=== PATIENT | female | born 1950 | race Caucasian/White ===

== ENCOUNTER 2018-10-24 17:00 | Inpatient (IN) | payer MEDICARE ==
[~2018-10-24] VITALS: Ht 157.5 cm; Wt 64.4 kg
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
--- NOTE | 2018-10-24 17:00 | NUR ---
REC'D VIA STRETCHER FROM [facility]. PT IS 68 F. ADMITTED DUE TO DEPRESSION, NOT EATING, NOT SLEEPING, NOT TAKING MEDICATIONS AND INCREASED CONFUSION. PT IS FULL CODE. CODE WORD CHAYITO. PT IS AMBULATORY AND CONT. PER REPORT. PT REQUEST HER FRIEND GLENIS CHAMBERS TO RECIEVE ALL INFORMATION. PHONE # [phone]. PT RECORD SHOWS PT IS A SMOKER. PT IS TAKING LEVAQUIN 750MG DAILY BEFORE LUNCH X 5 DAYS FOR PNEUMONIA. PT AT TIMES BECOMES ANXIOUS AND REQUEST O2. EMT REPORTED PT DID NOT REQUEST O2 DURING TRANSFER. PT O2 SAT IS 95%
[2018-10-24] MEDS ORDERED: LEVAQUIN750 MG PO (19:18)
[2018-10-24] MEDS ORDERED: SEROQUEL50 MG PO (19:19)
[2018-10-24] MEDS ORDERED: LIPITOR10 MG PO (19:20)
[2018-10-24] MEDS ORDERED: PROZAC20 MG PO (19:20)
[2018-10-24] MEDS ORDERED: ATIVAN1 MG PO (19:21)
[2018-10-24] MEDS ORDERED: GLUCOPHAGE500 MG PO (19:21)
[2018-10-24] MEDS ORDERED: OMEPRAZOLE20 M1 PO (19:21)
[2018-10-24] MEDS ORDERED: ZANAFLEX4 MG PO (19:22)
[2018-10-24 19:57] VITALS: BP 135/60; BMI 26.0
[2018-10-24 20:05] LABS: APPEARANCE CLEAR (CLEAR); BILIRUBIN NEGATIVE (NEGATIVE); COLOR YELLOW (YELLOW); GLUCOSE NEGATIVE (NEGATIVE); KETONE NEGATIVE (NEGATIVE); NITRITE NEGATIVE (NEGATIVE); PROTEIN NEGATIVE (NEGATIVE); SPECIFIC GRAVITY 1.015 (1.005-1.020); UROBILINOGEN NORMAL (NORMAL)
--- NOTE | 2018-10-24 21:07 | NUR ---
RECEIVED IN PATIENT ROOM. RESTING IN BED WITH EYES OPEN. CALM AND COOPERATIVE WITH ADMISSION ASSESSMENTS. COMPLAINS OF BEING DEPRESSED. ENCOURAGE TO EXPRESS NEEDS. REDIRECT AND REORIENT NEEDED. RESTING IN BED WITH EYES CLOSED AT THIS TIME. CONTINUE PLAN OF CARE.
[2018-10-24 22:09] VITALS: BP 134/64
--- NOTE | 2018-10-25 00:42 | NUR ---
PATIENT IS ANXIOUS AND UNABLE TO SLEEP, RESTLESS AND WALKING THE HALLWAYS, GAVE ATIVAN.0.5 MG PO , WILL CONTINUE TO MONITPR.
[2018-10-25 07:02] LABS: BASOPHILS 0.2 % (0-2); EOSINOPHILS 1.1 % (0-7); HEMATOCRIT 29.5 % (36.0-48.0); HEMOGLOBIN 9.3 g/dL (12-16); MCH 25.9 pg (26.0-34.0); MCHC 31.5 g/dL (31.0-37.0); MCV 82.2 fL (80.0-100.0); MONOCYTES 5.6 % (2-11); NEUTROPHILS 82.1 % (40-80); PLATELET COUNT 517 10x3/uL (130-400); RBC 3.59 10x6/uL (4.00-5.40); RDW 16.1 % (11.5-14.5); WBC 11.6 10x3/uL (4.8-10.8)
[2018-10-25 07:24] VITALS: BP 157/64
[2018-10-25 07:28] LABS: ALBUMIN 1.9 g/dL (3.4-5.0); ANION GAP 18.1 mmol/L (8-16); BILIRUBIN - TOTAL 0.23 mg/dL (0.2-1.3); CALCIUM 8.8 mg/dL (8.5-10.1); CARBON DIOXIDE 22.4 mmol/L (21.0-32.0); CHOL - HDL RATIO 2.6 ratio (2.3-4.1); CREATININE - SERUM 1.3 mg/dL (0.6-1.3); LDL-HDL RATIO 1.1 ratio (1.5-3.5); POTASSIUM - SERUM 3.5 mmol/L (3.5-5.1); PROTEIN - SERUM 6.8 g/dL (6.4-8.2); THYROID STIMULATING HORMONE 0.91 uIU/mL (0.36-3.74)
[2018-10-25 08:33] LABS: CHOL - HDL RATIO 2.6 ratio (2.3-4.1); LDL-HDL RATIO 1.1 ratio (1.5-3.5)
[2018-10-25 10:47] VITALS: BMI 26.0
[2018-10-25 14:09] VITALS: Ht 157.5 cm; Wt 64.4 kg
--- NOTE | 2018-10-25 17:50 | NUR ---
ATIVAN 0.5MG PO GIVEN FOR C/O ANXIETY.TREMBLING OF HANDS OBSERVED.
--- NOTE | 2018-10-25 18:48 | NUR ---
ORIENTED TO SELF AND MONTH ONLY.COMPLIANT WITH STAFF AND MEDS.AMBULATES WITH STEADY GAIT.WILL CONTINUE WITH PLAN OF CARE,MONITOR FOR CHANGES AND SAFETY.
[2018-10-25 20:00] VITALS: BP 176/77
--- NOTE | 2018-10-26 04:41 | NUR ---
B) Patient is alert and oriented to person, confused and restless at times I) Administered scheduled medications as ordered, PRN Haldol 2 mg PO given for anxiety at 01:00, R) Mediation compliant, sleeping quietly in her bed now, P) Contiue plan of care.
[2018-10-26 07:31] LABS: RAPID PLASMA REAGIN Non Reactive (Non Reactive)
[2018-10-26 08:10] VITALS: BP 141/70
[2018-10-26 09:18] LABS: FOLATE (FOLIC ACID) - SERUM 10.1 ng/mL (>3.0)
--- NOTE | 2018-10-26 10:09 | NUR ---
RECEIVED PATIENT IN DINING ROOM FOR B'FAST, ALERT, CALM, QUIET, COOPERATIVE, DEPRESSED MOOD. MEDS ADMIN PER ORDERS WITH COMPLETE MED COMPLIANCE NOTED. COOPERATIVE WITH GROUP ACTIVITIES AND STAFF. CONT POC INCLUDING MEDS AND GROUP THERAPY DIRECTED.
[2018-10-26 20:08] VITALS: BP 113/71
--- NOTE | 2018-10-27 02:12 | NUR ---
B) Patient is alert and orientd to person and being in ahospital, calm and cooperative, I) Administered scheduled medications as ordered, monitored for safety and for needs. R) Mediation compliant, follows unit milieu P) Continue plan of care.
[2018-10-27 07:10] LABS: BASOPHILS 0.1 % (0-2); EOSINOPHILS 0.6 % (0-7); HEMOGLOBIN 10.4 g/dL (12-16); IMMATURE GRANULOCYTES 1.3 % (0-5); LYMPHOCYTES 10.7 % (15-50); MCH 26.4 pg (26.0-34.0); MCHC 32.5 g/dL (31.0-37.0); MCV 81.2 fL (80.0-100.0); MEAN PLATELET VOLUME 9.2 fL (7.4-10.4); MONOCYTES 4.3 % (2-11); RBC 3.94 10x6/uL (4.00-5.40); RDW 16.3 % (11.5-14.5); WBC 12.4 10x3/uL (4.8-10.8)
[2018-10-27 07:11] LABS: PLATELET COUNT 631 10x3/uL (130-400)
[2018-10-27 07:32] LABS: ALBUMIN 2.3 g/dL (3.4-5.0); BILIRUBIN - TOTAL 0.33 mg/dL (0.2-1.3); CALCIUM 9.2 mg/dL (8.5-10.1); CARBON DIOXIDE 22.5 mmol/L (21.0-32.0); CREATININE - SERUM 1.5 mg/dL (0.6-1.3); POTASSIUM - SERUM 3.5 mmol/L (3.5-5.1); PROTEIN - SERUM 7.6 g/dL (6.4-8.2)
[2018-10-27 08:01] VITALS: BP 181/75
--- NOTE | 2018-10-27 08:05 | NUR ---
Silas from lab called with a critical lab. 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 She is to be placed on contact isolation. Did provide a gown and gloves for the patient and she is sitting away from the other patients. Did explain to the patient the reason she needs to wear the gown and gloves, she nodded her head and has been compliant.
--- NOTE | 2018-10-27 12:17 | NUR ---
B) The patient is pleasant, she is able to ambulate. She is oriented x 3. She is cooperative and continues to wear her isolation gown and gloves. I) Provide prescribed meds. R) The patient is compliant with meds and unit milieu. P) Continue POC.
--- NOTE | 2018-10-27 12:56 | PN ---
PATIENT:EDWIN FRANCIS MEDICAL RECORD: [id number] LOCATION:[facility] ADMISSION DATE: 10/24/18 PROGRESS NOTE DATE OF SERVICE: 10/26/2018 SUBJECTIVE: The patient's case was discussed with staff. She has no new complaint. OBJECTIVE: The patient has been compliant with her medications so far that she still is not eating. She only ate less than half of one meal yesterday. She also was agitated last night and required p.r.n. Haldol. She is calm today, but she looks very disorganized and for whatever reason is not fully oriented this afternoon. ASSESSMENT: No change in diagnoses. PLAN: Current medicines have been reviewed and will be maintained. Long-term prognosis is guarded. TRANSINT:[id number] Voice Confirmation ID: [id number] DOCUMENT ID: [id number] CAROL ZHU MD at 1256 CC: [id number] DICTATION DATE: 10/26/18 1648 PLANT MAINTENANCE MANAGER: 10/26/18 2324 ADM IN [place] [id number] [place] [id number]
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
--- NOTE | 2018-10-27 21:43 | NUR ---
PATIENT IS CALM AND STAYS TO HERSELF, SOME CONFUSION, COMPLIANT WITH MEDS, WILL FOLLOW POC
[2018-10-28 04:45] VITALS: BP 134/70
--- NOTE | 2018-10-28 07:30 | NUR ---
PT IS CALM AND COOPERATIVE WITH ASSESSMENT. ALERT WITH CONFUSION NOTED. PT IS VERY QUIET AND GUARDED. PT KEEPS TO SELF DOES NOT INTERACT WITH PEERS MUCH. PRESCRIBED MEDS PROVIDED. MED COMPLIANT. REDIRECT AND REORIENT NEEDED. FALL PRECAUTIONS IN PLACE. WILL CONTINUE TO MONITOR Q 15 MINUTES FOR SAFETY. WILL CPOC.
[2018-10-28 08:18] VITALS: BP 164/78
--- NOTE | 2018-10-28 12:21 | PN ---
PATIENT:EDWIN FRANCIS MEDICAL RECORD: [id number] LOCATION:[facility] ADMISSION DATE: 10/24/18 PROGRESS NOTE DATE OF SERVICE: 10/27/2018 SUBJECTIVE: The patient's case was discussed with staff. She has no new complaint. OBJECTIVE: The patient denies intent to harm herself or others. She is generally tolerating her medicines well. ASSESSMENT: No change in diagnoses. PLAN: Current medicines have been reviewed and will be maintained. Long-term prognosis is guarded. I am going to order a Depakote level. She continues to deny a psychiatric history. TRANSINT:[id number] Voice Confirmation ID: [id number] DOCUMENT ID: [id number] CAROL ZHU MD at 1221 CC: [id number] DICTATION DATE: 10/27/18 1343 BED MAKER: 10/27/18 1414 ADM IN [place] [id number] [place] [id number]
[2018-10-28 21:16] VITALS: BP 138/80
--- NOTE | 2018-10-28 22:37 | NUR ---
PATIENT IS QUIET AND STAYS TO HERSELF, SHE ALWAYS HAS A LOOK OF "FEAR" ON HER FACE. COMPLIANT WITH MEDS. WILL FOLLOW POC
[2018-10-29 08:00] VITALS: BP 147/73
--- NOTE | 2018-10-29 13:10 | NUR ---
PATIENT IS ON CONTACT ISOLATION FOR ECOLI IN URINE. SHE IS CALM AND COOPERATIVE WITH CARE AND ASSESSMENT. MEDICATIONS COMPLIANT. ALERT WITH CONFUSION NOTED. REDIRECT AND REORIENT NEEDED. WILL CONTINUE PLAN OF CARE.
--- NOTE | 2018-10-29 16:05 | PN ---
PATIENT:EDWIN FRANCIS MEDICAL RECORD: [id number] LOCATION:[facility] ADMISSION DATE: 10/24/18 PROGRESS NOTE DATE OF SERVICE: 10/28/2018 SUBJECTIVE: The patient's case was discussed with staff. She has no new complaint. OBJECTIVE: The patient denies intent to harm herself or others. She generally tolerates her medicines well. ASSESSMENT: No change in diagnoses. PLAN: Brief supportive and educational interventions were made. Long-term prognosis is guarded. TRANSINT:[id number] Voice Confirmation ID: [id number] DOCUMENT ID: [id number] CAROL ZHU MD at 1605 CC: [id number] DICTATION DATE: 10/28/18 1240 MIXING PAN TENDER: 10/28/18 1245 ADM IN [place] [id number]
[2018-10-29 20:06] VITALS: BP 163/69
--- NOTE | 2018-10-30 00:17 | NUR ---
RECEIVED IN DAYROOM. SITTING IN CHAIR WHILE WATCHING TV. CALM AND COOPERATIVE WITH CARE AND ASSESSMENT. NO SIGNS OF ANXIETY. REDIRECT AND REORIENT NEEDED. RESTING IN BED WITH EYES CLOSED AT THIS TIME. CONTINUE PLAN OF CARE.
[2018-10-30 07:48] VITALS: BP 147/87
--- NOTE | 2018-10-30 09:18 | NUR ---
RECEIVED PATIENT IN DINING ROOM FOR B'FAST, ALERT, CALM, PLEASANT, WITHDRAWN. MEDS ADMIN PER ORDERS WITH COMPLETE MED COMPLIANCE NOTED. COOPERATIVE WITH STAFF REQUESTS BUT QUIET AND WITHDRAWN. CONT POC INCLUDING MEDS AND GROUP THERAPY DIRECTED.
--- NOTE | 2018-10-30 10:59 | NUR ---
Nutrition Follow Up: Chart reviewed Diet: ADA PO Intake: 45% meal avg No BM since admit - x 6 days Labs reviewed Meds noted including Megace Rec continue current diet. Rec continue appetite stimulant. RD following.
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
[2018-10-30 19:34] VITALS: BP 162/65
--- NOTE | 2018-10-30 21:45 | NUR ---
RECEIVED IN DAYROOM. SITTING IN CHAIR AND WATCHING TV. CALM AND COOPERATIVE WITH CARE AND ASSESSMENT. NO SIGNS OF ANXIETY. REDIRECT AND REORIENT NEEDED. ENCOURAGE TO EXPRESS NEEDS. REDIRECT AND REORIENT NEEDED. CONTINUES TO SIT IN CHAIR AND WATCH TV AT THIS TIME. CONTINUE PLAN OF CARE.
[2018-10-31 09:47] VITALS: BP 202/68
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
[2018-10-31 22:07] VITALS: BP 198/98
--- NOTE | 2018-10-31 22:42 | NUR ---
RECEIVED IN PATIENT ROOM. RESTING IN BED WITH EYES OPEN. CALM AND COOPERATIVE WITH CARE AND ASSESSMENT. NO SIGNS OF ANXIETY. REDIRECT AND REORIENT NEEDED. RESTING IN BED WITH EYES CLOSED AT THIS TIME. CONTINUE PLAN OF CARE.
[2018-11-01 09:27] VITALS: BP 171/67
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
--- NOTE | 2018-11-01 14:00 | PN ---
PATIENT:EDWIN FRANCIS MEDICAL RECORD: [id number] LOCATION:[facility] ADMISSION DATE: 10/24/18 PROGRESS NOTE DATE OF SERVICE: 10/31/2018 SUBJECTIVE: The patient's case was discussed with staff. She has no new complaint. OBJECTIVE: The patient denies an intent to harm herself or others. She is generally tolerating her medicines well. Eye contact is fair. ASSESSMENT: No change in diagnoses. PLAN: Current medicines have been reviewed and will be maintained. The patient hopefully can be changed to oral antibiotics and once this is done, she can be transitioned out of the hospital. TRANSINT:[id number] Voice Confirmation ID: [id number] DOCUMENT ID: [id number] CAROL ZHU MD at 1400 CC: [id number] DICTATION DATE: 10/31/18 1621 GRASSLAND CONSERVATIONIST: 10/31/18 2243 ADM IN [facility] [address] [place] [address]
--- NOTE | 2018-11-01 18:00 | NUR ---
REMAINS IN CONTACT ISOLATION FOR ECOLI IN URINE.IS COMPLIANT WITH STAFF AND MEDS.WILL CONTINUE WITH PLAN OF CARE,MONITOR FOR CHANGES AND SAFETY.
[2018-11-01 20:36] VITALS: BP 130/68
--- NOTE | 2018-11-02 01:45 | NUR ---
B) Patient is alert and oriented to person and place, knows she is going home and is very ready I) Administered scheduled medications as ordered, monitored for safety R) Mediation compliant, pleasant and friendly P) Continue plan of care.
[2018-11-02 09:20] VITALS: BP 124/70; BP 163/69
--- NOTE | 2018-11-02 10:42 | NUR ---
B) The patient is awake and alert, she is pleasant, her mood is stable, she is blunted in affect, but denies any S.I. or depression. She knows she is leaving today. She is on isolation for e-coli in her urine and she continues to wear her isolation gown. I) Provide prescribed meds. R) The patient is compliant with meds and unit milieu. She is sleepy this am. P) Continue POC.
[2018-11-02] MEDS ORDERED: LISINOPRIL10 MG PO (12:28)
[2018-11-02] MEDS ORDERED: ABILIFY2 MG PO (12:29)
[2018-11-02] MEDS ORDERED: EFFEXOR37.5 MG PO (12:30)
[2018-11-02] MEDS ORDERED: DEPAKOTE500 MG PO (12:30)
[2018-11-02] MEDS ORDERED: VOLTAREN75 MG PO (12:30)
[2018-11-02] MEDS ORDERED: MUCINEX600 MG PO (12:31)
[2018-11-02] MEDS ORDERED: FLORAJEN3 CAPS460 MG PO (12:31)
[2018-11-02] MEDS ORDERED: PROTONIX40 MG PO (12:32)
[2018-11-02] MEDS ORDERED: MEGACE40 MG PO (12:32)
--- NOTE | 2018-11-02 15:20 | NUR ---
The patient's family is here to pick her up, all of the patient's belongings are accounted for. Did go over the medications with the family and explained that the patient needs to see their PCP and go to the counseling. The patient is now d/c'd from [facility].
--- NOTE | 2018-11-02 17:15 | PN ---
PATIENT:EDWIN FRANCIS MEDICAL RECORD: [id number] LOCATION:[facility]id[facility] ADMISSION DATE: 10/24/18 PROGRESS NOTE DATE OF SERVICE: 11/01/2018 SUBJECTIVE: The patient's case was discussed with staff. She has no new complaint. OBJECTIVE: The patient is in good behavioral control. She has poor insight about her condition. She does tolerate her medicines well. ASSESSMENT: No change in diagnoses. PLAN: Supportive and educational interventions were made. Long-term prognosis is guarded. TRANSINT:[id number] Voice Confirmation ID: [id number] DOCUMENT ID: [id number] CAROL ZHU MD at 1715 CC: [id number] DICTATION DATE: 11/01/18 1423 TRAFFIC MAINTENANCE OFFICER: 11/01/18 1851 DIS IN 11/02/18 [facility] [address] [place] [address]
== END 2018-11-02 15:20 | disposition home or self-care (01) | DRG 885 ==
LOC: D.PSYCH 17:00
PROVIDERS: Family Medicine; ADMIT Psychiatry & Neurology Psychiatry; ATTEND Psychiatry & Neurology Psychiatry
DX: F32.2 Major depressive disorder, single episode, severe without psychotic features (principal); J18.9 Pneumonia, unspecified organism; N39.0 Urinary tract infection, site not specified; E11.9 Type 2 diabetes mellitus without complications; E78.5 Hyperlipidemia, unspecified; K21.9 Gastro-esophageal reflux disease without esophagitis; F41.8 Other specified anxiety disorders; M19.90 Unspecified osteoarthritis, unspecified site; M62.838 Other muscle spasm; R63.0 Anorexia; Z68.26 Body mass index [BMI] 26.0-26.9, adult; I10 Essential (primary) hypertension